=== PATIENT | female | born 1955 | race Caucasian/White ===

== ENCOUNTER 2020-10-29 11:55 | Emergency (ER) | payer OTHER ==
[~2020-10-29] VITALS: Ht 170.2 cm; Wt 81.6 kg
[2020-10-29 19:11] LABS: Basophils # (auto) 0.1 10 ^3/uL (0-0.2); Basophils % (auto) 1.2 % (0.0-2.0); Red Blood Cells 2.73 10^6/uL (4.0-5.20)
[2020-10-29 19:15] LABS: Eosinophils # (auto) 0 10 ^3/uL (0-0.8); Eosinophils % (auto) 0.5 % (0.0-7.0); Hematocrit 21.6 % (36.0-46.0); Lymphocytes # (auto) 1.9 10 ^3/uL (0.4-5.4); Mean Corpuscular Hemoglobin 24.3 pg (28.0-32.0); Mean Corpuscular Hgb Conc. 30.8 g/dL (32.0-36.0); Monocytes # (auto) 0.6 10 ^3/uL (0-1.3); Monocytes % (auto) 6.5 % (0.0-12.0); Neutrophils # (auto) 6.3 10 ^3/uL (1.6-8.6); Neutrophils % (auto) 70.8 % (37.0-80.0); Nucleated Red Blood Cells % 0.5 %; White Blood Cell 8.9 10^3/uL (4.4-10.8)
[2020-10-29 19:26] LABS: Alanine Aminotransferase 12 U/L (13-56); Anion Gap 5 (5-15); Aspartate Aminotransferase 12 U/L (15-37); BUN/Creatinine Ratio 18.3; Blood Urea Nitrogen 13 mg/dL (7-18); Calcium 8.5 mg/dL (8.5-10.1); Carbon Dioxide 24 mmol/L (21-32); Chloride 112 mmol/L (98-107); GFR African American 106 mL/min; GFR Non-African American 88 mL/min; Glucose 86 mg/dL (74-106); Sodium 141 mmol/L (136-145)
[2020-10-29 19:31] LABS: Red Cell Distribution Width 20.2 % (11.8-14.3)
[2020-10-29 19:35] LABS: Alkaline Phosphatase 84 U/L (45-117); Bilirubin, Total 0.5 mg/dL (0.2-1.0); Hemoglobin 6.6 g/dL (12.2-16.2); Total Protein 6.7 g/dL (6.4-8.2)
[2020-10-29 23:27] LABS: INR 1.35 (0.9-1.15); Partial Thromboplastin Time 24.5 sec (23.6-33.0)
[2020-10-29 23:36] VITALS: BP 139/86
[2020-10-30] VITALS: BP 140/84
[2020-10-30 02:58] VITALS: BP 123/81
[2020-10-30 03:14] VITALS: BP 142/80
[2020-10-30 06:00] VITALS: BP 128/81
== END 2020-10-30 06:23 | disposition home or self-care (01) ==
LOC: EDUNIT# 11:55 → EDSEX 11:55 → EDBD 11:55 → ER 11:55
DX: D64.9 Anemia, unspecified (principal); R79.1 Abnormal coagulation profile; I10 Essential (primary) hypertension; E03.9 Hypothyroidism, unspecified; Z20.822 Contact with and (suspected) exposure to COVID-19
CPT/HCPCS: 36415; 36430; 80053; 83735; 84443; 84484; 85025; 85610; 85730; 86850; 86900; 86901; 86920; 87426; 93005; 99285; P9016